=== PATIENT | male | born 1970 | race African-American/Black ===

== ENCOUNTER 2018-12-28 16:16 | Emergency (ER) | payer MEDICAID ==
[~2018-12-28] VITALS: Ht 182.9 cm; Wt 90.9 kg
[2018-12-28 18:13] VITALS: BP 136/96
== END 2018-12-28 16:55 | disposition left against medical advice (07) ==
LOC: EMS 16:18
DX: R51 Headache (principal); R10.9 Unspecified abdominal pain; Z53.20 Procedure and treatment not carried out because of patient's decision for unspecified reasons